=== PATIENT | female | born 1965 | race Two or more races ===

== ENCOUNTER 2020-12-29 08:56 | Emergency (ER) | payer SELFPAY ==
[~2020-12-29] VITALS: Ht 167.6 cm; Wt 65.8 kg
[2020-12-29] MEDS ORDERED: KETOROLAC TROMETH 60MG/2ML VIAL IM ONE (09:45)
== END 2020-12-29 10:07 | disposition home or self-care (01) ==
LOC: ER 08:56
DX: S30.864A Insect bite (nonvenomous) of vagina and vulva, initial encounter (principal); G89.29 Other chronic pain; M54.9 Dorsalgia, unspecified; W57.XXXA Bitten or stung by nonvenomous insect and other nonvenomous arthropods, initial encounter; Y93.89 Activity, other specified; Y92.89 Other specified places as the place of occurrence of the external cause; Y99.8 Other external cause status
CPT/HCPCS: 96372; 99283; J1885